=== PATIENT | female | born 1950 | race Caucasian/White ===

== ENCOUNTER 2018-08-15 17:00 | Emergency (ER) | payer MEDICARE, MEDICAID, SELFPAY ==
[2018-08-15 17:22] VITALS: BP 120/78; PULSE 90; RESP 13; TEMP 36.6; O2SAT 99
--- NOTE | 2018-08-15 19:34 | ED.SKABFB ---
HPI - Skin/Abscess/Foreign Bdy <GARFIELD Carson - Last Filed: 08/15/18 22:43> General Chief complaint: Skin/Abscess/Foreign Body Stated complaint: FEELS SICK, STATES LESSION UNDER TONGUE Time Seen by Provider: 08/15/18 19:09 Source: patient Mode of arrival: ambulatory Limitations: no limitations History of Present Illness HPI narrative: 67-year-old female with history of Mi an is a former smoker here for complaint of having sore throat and nasal congestion over the past couple of days. She also reports that she has a sore underneath her tongue. Positive p.o. intake. She is tolerating fluids well. No known fever. She denies any trauma to the area. She denies any contacts with similar symptoms. No other concerns or complaints at this timeframe. Related Data Home Medications Medication Instructions Recorded Confirmed [AMITR/BACL/SONDRA] #0 09/16/17 atorvastatin 40 mg PO DAILY 08/15/18 08/15/18 clopidogrel 75 mg PO DAILY 08/15/18 08/15/18 conjugated estrogens [Premarin] 1 applic VAGINAL DIRECTED 08/15/18 08/15/18 metoprolol succinate 25 mg PO DAILY 08/15/18 08/15/18 nitroglycerin 0.4 mg SUBLINGUAL PRN PRN 08/15/18 08/15/18 oxybutynin chloride 5 mg PO DAILY 08/15/18 08/15/18 pantoprazole 40 mg PO DAILY 08/15/18 08/15/18 Previous Rx's Medication Instructions Recorded lidocaine HCl 0 TOPICAL SEE INSTRUCTIONS #30 ml 07/01/17 benzonatate [Tessalon Perles] 100 mg PO TID #30 cap 08/27/17 benzonatate 200 mg PO Q8HP PRN #20 cap 08/30/17 lidocaine HCl [Lidocaine Viscous] 10 ml PO Q3HP PRN #120 ml 08/30/17 benzocaine 1 applictn MM TID PRN #9 gram 08/15/18 Allergies Allergy/AdvReac Type Severity Reaction Status Date / Time codeine [CODEINE] Allergy Intermediate Dizzy/nause Unverified 11/24/17 12:42 a Review of Systems <GARFIELD Carson - Last Filed: 08/15/18 22:43> Constitutional Denies chills, Denies fever(s), Denies lethargy and Denies weakness Eyes Denies change in vision, Denies eye discharge, Denies irritation and Denies loss of vision ENT Comments: Sore throat and oral lesion Cardiovascular Denies chest pain, Denies irregular heart rhythm, Denies lightheadedness, Denies palpitations, Denies dyspnea, Denies dyspnea on exertion and Denies orthopnea Respiratory Denies cough, Denies dyspnea, Denies dyspnea on exertion and Denies wheezing Gastrointestinal Gastrointestinal: Denies abdominal pain, Denies change in bowel habits, Denies diarrhea, Denies nausea and Denies vomiting Genitourinary Denies hematuria, Denies flank pain, Denies urinary incontinence and Denies urinary urgency Musculoskeletal Denies back pain, Denies muscle weakness, Denies numbness and Denies tingling Integumentary/Breasts Denies pruritus, Denies erythema, Denies rash and Denies wounds Neurologic Denies confusion, Denies loss of vision, Denies numbness, Denies tingling and Denies weakness Psychiatric Denies anxiety, Denies confusion, Denies depression, Denies homicidal ideation and Denies suicidal ideation Endocrine Denies palpitations Hematologic/Lymphatic Denies easy bruising Allergic/Immunologic Denies wheezing Exam <GARFIELD Carson - Last Filed: 08/15/18 22:43> Initial Vital Signs Initial Vital Signs: Vital Signs Temperature 97.8 F 08/15/18 17:22 Pulse Rate 90 08/15/18 17:22 Respiratory Rate 13 08/15/18 17:22 Blood Pressure 120/78 08/15/18 17:22 Pulse Oximetry 99 08/15/18 17:22 Const General: cooperative and well developed Nutritional Appearance: well nourished Orientation: alert, awake, oriented x3 and not confused [facility] Mouth: moist mucous membranes and other ( 0.5 cm whitish lesion to right sublingual area) Throat: posterior oropharynx abnormal (Mild erythema to oropharynx no exudate) erythema Eyes Conjunctivae: conjunctivae normal Sclera: sclerae normal Pupils: PERRL EOM: EOM intact bilaterally Resp Effort & Inspection: normal respiratory effort, able to speak in complete sentences, no respiratory distress and no use of accessory muscles Auscultation: clear to auscultation bilaterally, no rales, no rhonchi and no wheezes Cardio Rate: regular rate Rhythm: regular rhythm Heart Sounds: no click, no gallops, no murmurs and no rubs Pulses: normal peripheral pulses Neuro General: alert, oriented x3, gait normal and no focal motor deficits Speech: speech normal <Karey Connor MD - Last Filed: 08/16/18 02:50> Initial Vital Signs Initial Vital Signs: Vital Signs Temperature 97.8 F 08/15/18 17:22 Pulse Rate 90 08/15/18 17:22 Respiratory Rate 13 08/15/18 17:22 Blood Pressure 120/78 08/15/18 17:22 Pulse Oximetry 99 08/15/18 17:22 Course <GARFIELD Carson - Last Filed: 08/15/18 22:43> Vital Signs - 8 hr 08/15/18 19:47 Pulse Rate 83 Respiratory Rate 15 Blood Pressure [Left Arm] 137/77 Pulse Oximetry 99 <Karey Connor MD - Last Filed: 08/16/18 02:50> Vital Signs - 8 hr 08/15/18 19:47 Pulse Rate 83 Respiratory Rate 15 Blood Pressure [Left Arm] 137/77 Pulse Oximetry 99 MDM - Skin/Abscess/Foreign Bdy <GARFIELD Carson - Last Filed: 08/15/18 22:43> Lab Data Point of Care Testing Rapid Strep A Negative MDM Narrative Medical decision making narrative: Rapid strep test was obtained was negative for strep. Sinus symptoms presents as viral upper respiratory infection. Lesion to sublingual area. To be aphthous ulcer. [id number] Tylenol as needed for discomfort. Good hygiene. Follow up with primary care provider. For any worsening symptoms return to the emergency room. <Karey Connor MD - Last Filed: 08/16/18 02:50> Lab Data Point of Care Testing Rapid Strep A Negative Discharge Plan Departure Patient Disposition: Home Clinical Impression: Viral upper respiratory tract infection, Aphthous ulcer of mouth Discharge Date/Time: 08/15/18 21:41 Interventions: ED Discharge Assessment Last Done: 08/15/18 21:39 Instructions: DI for Aphthous Ulcers (Canker Sores) Activity Restrictions/Additional Instructions: Strep test was obtained was negative. Signs symptoms presents as a viral upper respiratory infection. Lesion to underneath the tongue appears to be a canker sore. Use [id number] Tylenol as needed for any discomfort. May use [id number] benzocaine aura prescribed benzocaine for discomfort to the canker sore. For any worsening symptoms return to the emergency room. Follow up with primary care provider. Prescriptions: New benzocaine 20 % gel 1 applictn MM TID PRN (Reason: mouth irritation) Qty: 9 RF: 0 No Action lidocaine HCl 30 ML jelly Topical SEE INSTRUCTIONS Qty: 30 RF: 4 benzonatate [Tessalon Perles] 100 MG capsule 100 mg PO TID Qty: 30 RF: 1 benzonatate 200 MG capsule 200 mg PO Q8HP PRNQty: 20 RF: 0 lidocaine HCl [Lidocaine Viscous] 100 ML solution 10 ml PO Q3HP PRNQty: 120 RF: 0 [AMITR/BACL/SONDRA] Qty: 0 RF: 0 atorvastatin 40 mg tablet 40 mg PO DAILY RF: 0 clopidogrel 75 mg tablet 75 mg PO DAILY RF: 0 pantoprazole 40 mg tablet,delayed release (DR/EC) 40 mg PO DAILY RF: 0 conjugated estrogens [Premarin] 0.625 mg/gram cream 1 applic Vaginal DIRECTED RF: 0 nitroglycerin 0.4 mg tablet, sublingual 0.4 mg Sublingual PRN PRN (Reason: Chest Pain) RF: 0 oxybutynin chloride 5 mg tablet extended release 24hr 5 mg PO DAILY RF: 0 metoprolol succinate 25 mg tablet extended release 24 hr 25 mg PO DAILY RF: 0 Referrals: Maya Matute DO [Primary Care Provider] -
[2018-08-15 19:47] VITALS: BP 137/77; PULSE 83; RESP 15; O2SAT 99
--- NOTE | 2018-08-15 20:06 | PC.NURSE ---
Pt reports noticed yesterday some discomfort in her L lateral side tongue. Today woke up with sig swelling and concerned. C/o Severe discomfort to eat/drink on affected site. Past smoker for 10 yrs.
--- NOTE | 2018-08-15 21:03 | PC.NURSE ---
entered room to obtain strep test. explained procedure to patient. Pt states she is upset about the wait and that she was told the doctor took a break. I informed her that the doctor did not take a break but I did and during that time another nurse was caring for her while I was gone. I informed her that we are a very packed department tonight and I apologized for the wait. I asked her if I could obtain the swab for the test. Pt agreed and strep swab was obtained.
--- NOTE | 2018-08-15 21:27 | PC.NURSE ---
Pt frequently opens door to room, and stands at doorway watching other people. Pt notified that she must wait in her room for patient privacy. Door remains open.
--- NOTE | 2018-08-15 21:36 | PC.NURSE ---
Patient at door way again. I listened to her complaints and informed her that her strep test was negative and apologized again for her wait. Provider came and discussed his findings with patient.
== END 2018-08-15 21:41 | disposition home or self-care (01) ==
PROVIDERS: Emergency Provider Nurse Practitioner Family; PCP Family Medicine
DX: J06.9 Acute upper respiratory infection, unspecified (principal); B97.89 Other viral agents as the cause of diseases classified elsewhere; K12.0 Recurrent oral aphthae
CPT/HCPCS: 87880; 99283

== ENCOUNTER 2020-03-03 16:40 | Emergency (ER) | payer MEDICARE, MEDICAID, SELFPAY ==
[2020-03-03 17:05] VITALS: BP 112/65; PULSE 87; RESP 16; TEMP 36.4; O2SAT 99; BMI 19.0
--- NOTE | 2020-03-03 17:07 | DI.RAD.S_ITS ---
PROCEDURE: XR FINGER LT MIN 2V INDICATIONS: jammed left thumb TECHNIQUE: AP hand, 2 views of the 1st finger(s) acquired. COMPARISON: None. FINDINGS: Bones: No fractures or dislocations. No suspicious bony lesions. Degenerative changes are seen throughout, which are most prominent involving the 1st carpometacarpal joint. Soft tissues: No suspicious soft tissue calcifications. IMPRESSION: No displaced fractures are seen on these plain films. If there is focal tenderness, or other clinical concern for a fracture not seen on these images in this patient with a given history of trauma, please consider a dedicated CT or a short-term followup plain film series (in 1-2 weeks) for further evaluation. Dictated by: Carlyle See M.D. on 03/03/2020 at 16:19 Approved by: Carlyle See M.D. on 03/03/2020 at 16:19
[2020-03-03] MEDS: IBUPROFEN 400 MG TABLET PO (19:08)
[2020-03-03] MEDS: ACETAMINOPHEN 325 MG TABLET 650 MG PO (19:08)
[2020-03-03 19:20] VITALS: BP 138/86; PULSE 88; RESP 16; O2SAT 99
--- NOTE | 2020-03-04 01:44 | ED.UPPEXIN ---
HPI - Extremity Injury (Upper) <Otto RoldanVIVAINP - Last Filed: 03/04/20 01:59> General Chief Complaint: Extremity Injury, Upper Stated Complaint: Fell off RV Yesterday, Hurt Left Thumb Time Seen by Provider: 03/03/20 17:47 Source: patient Mode of arrival: Ambulatory Limitations: no limitations History of Present Illness HPI narrative: This is a 69-year-old female, nonsmoker, who has history of hypertension and cardiac stent presents to ED with left dominant thumb injury that occurred yesterday. Patient reports she fell off RV 2 ft. above and landed and jammed on her left thumb vertically and fell on her left knee. There is no open skin from this injury. Patient iced affected thumb for last 2 days with improved swelling but concerned for for throbbing pain in her entire thumb. Patient reports pain increases with movement and intact sensation. Patient had not taking medications prior coming into ED. patient reports her primary care physician is at [facility]. Related Data Home Medications Medication Instructions Recorded Confirmed atorvastatin 40 mg PO DAILY 08/15/18 08/15/18 metoprolol succinate 25 mg PO DAILY 08/15/18 08/15/18 nitroglycerin 0.4 mg SUBLINGUAL PRN PRN 08/15/18 08/15/18 aspirin 03/04/20 Allergies Allergy/AdvReac Type Severity Reaction Status Date / Time codeine [CODEINE] Allergy Intermediate Dizzy/nause Verified 03/03/20 19:33 a Review of Systems <Otto RoldanVIVIANP - Last Filed: 03/04/20 01:59> Review of Systems Narrative: General: Denies fever, chills, fatigue, malaise, sweats. HEENT: Denies sinus pain, ear pain, sore throat, difficulty swallowing, dizziness. Respiratory: Denies dyspnea, cough, wheezing, hemoptysis, sputum. Cardiovascular: Denies chest pain, palpitations, orthopnea, edema. Gastrointestinal: Denies nausea, vomiting, abdominal pain, diarrhea, constipation, melena. : Denies dysuria, frequency, incontinence, hematuria, urinary retention. Musculoskeletal: See HPI Skin: Denies rash, skin lesions, or other. Neurologic: Denies weakness, headache, numbness, change in speech, confusion, seizures, incoordination. Psychiatric: No concerning psychosocial issues. 12-point review of systems is negative except for those stated above. Patient History <GARFIELD Victor - Last Filed: 03/04/20 01:59> Medical History (Updated 03/04/20 @ 01:47 by GARFIELD Victor) Hypertension (Acute) Surgical History (Updated 03/04/20 @ 01:47 by GARFIELD Victor) History of heart artery stent (Acute) Social History Smoking Status: Never smoker Smoking Status: Never smoker Substance Use Type: does not use Exam <GARFIELD Victor - Last Filed: 03/04/20 01:59> Narrative Exam Narrative: General appearance: well developed, well nourished, in no acute distress. Head: normocephalic, atraumatic, no scalp lesions, non-tender. ENT: Hearing grossly intact. Airway patent. Neck/Thyroid: neck supple, full range of motion, no visible masses or meningeal signs. No JVD, non-tender without lymphadenopathy. Skin: no suspicious rashes, lesions over visible areas. Warm and dry and appropriate color for ethnicity. Heart: no clubbing, no cyanosis, no edema. S1 and S2 normal. RRR w/o murmurs, clicks, or bruits. Lungs: Breathing even and unlabored. No stridor. No accessory muscles used. Able to speak in full sentences. Chest: normal shape and expansion. Abdomen: non-obese, non-distended. Neurologic: alert and oriented. Cognitive exam, CHIEF SCIENTIST and PNS grossly intact on informal exam. Psych: good eye contact, normal affect. Initial Vital Signs Initial Vital Signs: Vital Signs Temperature 97.6 F 03/03/20 17:05 Pulse Rate 87 03/03/20 17:05 Respiratory Rate 16 03/03/20 17:05 Blood Pressure 112/65 03/03/20 17:05 Pulse Oximetry 99 03/03/20 17:05 Extrem Left upper extremity: hand Details: abnormal to inspection, neuromotor exam abnormal Details: thumb IP flexion abnormal Details: limited by pain and thumb ADduction abnormal Details: limited by pain, neurosensory exam normal Details: radial nerve sensory function normal, tendon exam abnormal, tenderness, vascular exam Details: radial pulse present and normal capillary refill, abnormal ROM of finger Details: pain with active ROM and pain with passive ROM, warmth, swelling Location: of the thumb Location: involving the entire digit and other (erythema); no lacerations, no ecchymosis, no foreign bodies and no puncture wound <Reema Thomas MD - Last Filed: 03/04/20 02:57> Initial Vital Signs Initial Vital Signs: Vital Signs Temperature 97.6 F 03/03/20 17:05 Pulse Rate 87 03/03/20 17:05 Respiratory Rate 16 03/03/20 17:05 Blood Pressure 112/65 03/03/20 17:05 Pulse Oximetry 99 03/03/20 17:05 Procedures <GARFIELD Victor - Last Filed: 03/04/20 01:59> Orthopedic Splinting/Casting Injury #1: Side: left Upper Extremity Injury Location: hand Upper Extremity Immobilizer: thumb spica (prefabricated) Post splinting neuro exam: intact Post splinting vascular exam: intact Placed by: Nursing Scores <GARFIELD Victor - Last Filed: 03/04/20 01:59> GCS [place] coma scale eye opening: Spontaneous [place] coma scale verbal response: Orientated Handy coma scale motor response: Obey commands [place] coma scale total score: 15 Course <GARFIELD Victor - Last Filed: 03/04/20 01:59> Orders Ordered: Discontinued Medications Acetaminophen (Tylenol) 650 mg PO NOW ONE Stop: 03/03/20 18:32 Last Admin: 03/03/20 19:08 Dose: 650 mg Documented by: GURMEET Ibuprofen (Advil) 400 mg PO NOW ONE Stop: 03/03/20 18:32 Last Admin: 03/03/20 19:08 Dose: 400 mg Documented by: GURMEET Vital Signs Vital signs: Vital Signs - 8 hr 03/03/20 19:20 Pulse Rate 88 Respiratory Rate 16 Blood Pressure 138/86 Pulse Oximetry 99 <Reema Thomas MD - Last Filed: 03/04/20 02:57> Orders Ordered: Discontinued Medications Acetaminophen (Tylenol) 650 mg PO NOW ONE Stop: 03/03/20 18:32 Last Admin: 03/03/20 19:08 Dose: 650 mg Documented by: GURMEET Ibuprofen (Advil) 400 mg PO NOW ONE Stop: 03/03/20 18:32 Last Admin: 03/03/20 19:08 Dose: 400 mg Documented by: GURMEET Vital Signs Vital signs: Vital Signs - 8 hr 03/03/20 19:20 Pulse Rate 88 Respiratory Rate 16 Blood Pressure 138/86 Pulse Oximetry 99 MDM - Extremity Injury (Upper) <Otto GARFIELD Roldan - Last Filed: 03/04/20 01:59> Differential Diagnosis Differential diagnosis: Likely finger sprain and other (Fracture of finger/thumb) Medical Records Attestation: I reviewed the patient's medical records. Imaging Data XR-finger, LT: Radiologist's Impression: [address] [address] XRay Report Signed Patient: Tena Shelby LMR#: [id number] : 2Acct:[id number] Age/Sex: 69 / FDate of Service: 03/03/20 Loc: ED Accession Number: [id number] Procedure: XR finger LT min 2V Ordering Provider: Blue Kessler MD PROCEDURE: XR FINGER LT MIN 2V INDICATIONS: jammed left thumb TECHNIQUE: AP hand, 2 views of the 1st finger(s) acquired. COMPARISON: None. FINDINGS: Bones: No fractures or dislocations. No suspicious bony lesions. Degenerative changes are seen throughout, which are most prominent involving the 1st carpometacarpal joint. Soft tissues: No suspicious soft tissue calcifications. IMPRESSION: No displaced fractures are seen on these plain films. If there is focal tenderness, or other clinical concern for a fracture not seen on these images in this patient with a given history of trauma, please consider a dedicated CT or a short-term followup plain film series (in 1-2 weeks) for further evaluation. Dictated by: Carlyle See M.D. on 03/03/2020 at 16:19 Approved by: Carlyle See M.D. on 03/03/2020 at 16:19 [facility] Narrative Medical decision making narrative: This is a 69-year-old female who injured her left thumb of dominant hand by landing vertically in jammed affected finger when she fell down 2 ft down RV. X-ray test does not show acute findings such as fractures or dislocation. Distal pulse sensation is intact. Patient has limited active and passive range of motion due to pain. Affected hand has placed on prefabricated thumb spica splint and patient was medicated with Tylenol and Motrin in ED for pain management. Advised RICE therapy and to follow-up with her primary care physician next week for recheck. If pain is not improving as expected and patient develops weakness on affected finger and to follow-up with [facility] orthopedist. Patient verbalized understanding and in agreement with treatment plan. Discharge Plan Departure Patient Disposition: Home Clinical Impression: Contusion of left thumb Qualifiers: Encounter type: initial encounter Damage to nail status: without damage Qualified Code(s): S60.012A - Contusion of left thumb without damage to nail, initial encounter Discharge Date/Time: 03/03/20 19:36 Instructions: DI for Contusion Activity Restrictions/Additional Instructions: You have been diagnosed with [left thumb contusion. X-ray test does not show acute findings such as fractures or dislocation. Please use splint that has been provided to you immobilization and to help with pain.]. What to do: *Take your medications as directed. Please take [id number] Tylenol 650-1000 mg up to 3 to 4 times a day as needed for pain. You can use ibuprofen/Motrin 400 mg up to 3 times a day as needed for pain and inflammation. Please take it with food to decrease GI irritation. You can use pack for another daily to help with swelling and inflammation. Elevate your hand as much as possible if you have swelling. *Follow up with your primary care provider in 2-3 days, call for an appointment. Let them know you were seen in the ED and that we asked you to be seen in follow up. You may require further imaging test if your symptoms not improved next 10 days to 2 weeks. As needed, please follow-up with [facility] orthopedist. *Return to ED if you have any new, worsening, or concerning symptoms, such as [chest pain, breathing difficulty, unable to tolerate fluids, worsening pain, weakness/numbness/tingling on affected finger or any acute concerns]. Prescriptions: No Action aspirin 81 mg Tablet,Chewable RF: 0 atorvastatin 40 mg tablet 40 mg PO DAILY RF: 0 nitroglycerin 0.4 mg tablet, sublingual 0.4 mg Sublingual PRN PRN (Reason: Chest Pain) RF: 0 metoprolol succinate 25 mg tablet extended release 24 hr 25 mg PO DAILY RF: 0 Referrals: [facility] [Provider Group] <Reema Thomas MD - Last Filed: 03/04/20 02:57> Cosign ED Attending Cosignature Attestation: I was immediately available in the department for consultation throughout this patient's visit. I agree with documentation as above. Reema Thomas MD
== END 2020-03-03 19:36 | disposition home or self-care (01) ==
PROVIDERS: Emergency Provider Nurse Practitioner Family; PCP Family Medicine
DX: S60.012A Contusion of left thumb without damage to nail, initial encounter (principal); W23.0XXA Caught, crushed, jammed, or pinched between moving objects, initial encounter; I10 Essential (primary) hypertension
CPT/HCPCS: 29280; 73140; 99283

== ENCOUNTER 2021-03-22 16:24 | Emergency (ER) | payer MEDICARE, MEDICAID, SELFPAY ==
[2021-03-22 16:36] VITALS: BP 151/72; PULSE 89; RESP 16; TEMP 36.7; O2SAT 95; BMI 19.8
--- NOTE | 2021-03-22 16:39 | DI.RAD.S_ITS ---
PROCEDURE: XR FOOT RT MIN 3V INDICATIONS: dropped shovel on R foot TECHNIQUE: 3 views of the foot were acquired. COMPARISON: [facility], CR, FOOT COMP MIN 3VW (RT), 03/19/2014, 15:29. [facility], CR, XR FOOT 3VW RT, 02/24/2017, 16:13. FINDINGS: Bones: No definite, displaced fractures are seen. Moderate to prominent hallux valgus deformity is seen, with associated focal degenerative change of the 1st metatarsophalangeal joint. Milder degenerative changes are seen elsewhere. Toe alignment abnormalities are seen. Plantar and Achilles calcaneal spurs are seen. An apparent bone island can be seen involving the proximal aspect of the 1st metatarsal. Soft tissues: No tibiotalar joint effusion. Achilles tendon appears normal. IMPRESSION: No definite, displaced fractures are detected. If there is point tenderness (or other clinical suspicion for a fracture not seen on these images) then a dedicated CT could be considered for further evaluation, if clinically appropriate. Moderate to prominent hallux valgus deformity, with associated degenerative changes. Dictated by: Carlyle See M.D. on 03/22/2021 at 15:59 Approved by: Carlyle See M.D. on 03/22/2021 at 16:01
--- NOTE | 2021-03-22 17:22 | ED_ITS ---
HPI - Extremity Injury (Lower) General Chief Complaint: Extremity Injury, Lower Stated Complaint: Messed Up Rt Foot, Hammer Toe,Swelling Time Seen by Provider: 03/22/21 16:44 History of Present Illness HPI Narrative: 70-year-old female nonsmoker with history of hypertension, hyperlipidemia, cardiac disease presents with a chief complaint of an accidental injury to the 2nd toe on her right foot. She states that she was caring a heavy object and dropped it on her toe and now has pain and swelling that has not improved. The injury was a few days ago and she still has swelling on her 2nd toe, which is a hammertoe,. She has no systemic findings such as fever chills nor nausea or vomiting. She has increased pain with ambulation and improvement with rest. She has a hard time squeezing her foot in to her shoe. Related Data Home Medications Medication Instructions Recorded Confirmed atorvastatin 40 mg tablet 40 mg PO DAILY 08/15/18 08/15/18 metoprolol succinate 25 mg 25 mg PO DAILY 08/15/18 08/15/18 tablet,extended release 24 hr nitroglycerin 0.4 mg sublingual 0.4 mg SUBLINGUAL PRN PRN 08/15/18 08/15/18 tablet aspirin 81 mg chewable tablet 03/04/20 Previous Rx's Medication Instructions Recorded cephalexin 500 mg capsule 500 mg PO Q6H 7 Days #28 cap 03/22/21 Allergies Allergy/AdvReac Type Severity Reaction Status Date / Time codeine [CODEINE] Allergy Intermediate Dizzy/nause Verified 03/03/20 19:33 a Review of Systems Review of Systems Narrative: GENERAL: Denies chills, fatigue, malaise, fever, sweats. HEENT: Denies sinus pain, ear pain, sore throat, difficulty swallowing, dizziness. RESPIRATORY: Denies dyspnea, cough, wheezing, hemoptysis, sputum. CARDIOVASCULAR: Denies chest pain, palpitations, orthopnea, edema, GASTROINTESTINAL: Denies nausea, vomiting, abdominal pain, diarrhea, constipation, melena. : Denies dysuria, frequency, incontinence, hematuria, urinary retention. MUSCULOSKELETAL: See HPI SKIN: See HPI NEUROLOGIC: Denies weakness, headache, numbness, change in speech, confusion, seizures, incoordination. PSYCHIATRIC: No concerning psychosocial issues. 12 point review of systems is negative except for those stated above Patient History Medical History Hypertension Surgical History History of heart artery stent Social History Smoking Status: Never smoker Smoking Status: Never smoker Substance Use Type: does not use Exam Narrative Exam Narrative: GEN: AOx3 and in mild distress EYES: Pupils are equal, round, and reactive to light and accommodation. Extraoccular muscles are intact bilaterally. There is no subconjunctival hemorrhage or exudate. CHEST: Lungs are clear to auscultation bilaterally and free of wheezes, rales, or rhonchi. Heart rate is regular rhythm, there are no murmurs, clicks, rubs, or gallops. There is no chest wall tenderness. ABD: Abdomen is soft and nontender. There is no guarding or rebound. Bowel sounds are normal in all 4 quadrants. There is no mass or organomegaly. EXT: Right 2nd toe (hammertoe) with mild swelling overlying the D IP with a healing superficial abrasion and minimal erythema. There is no lymphangitis. This is closed, isolated and neurovascularly intact SKIN: Warm, pink, and dry. No erythema or rash Initial Vital Signs Initial Vital Signs: Vital Signs Temperature 98.1 F 03/22/21 16:36 Pulse Rate 89 03/22/21 16:36 Respiratory Rate 16 03/22/21 16:36 Blood Pressure 151/72 H 03/22/21 16:36 Pulse Oximetry 95 03/22/21 16:36 Procedures Orthopedic Splinting/Casting Injury #1: Side: right Lower Extremity Injury Location: foot Lower Extremity Immobilizer: post-op shoe Post splinting neuro exam: intact Post splinting vascular exam: intact Placed by: Nursing Course Orders Ordered: Discontinued Medications Hydrocodone Bitart/Acetaminophen (Hydrocodone/Acet 5/325 Prepack) 1 bottle MISC SEEINSTR ONE Stop: 03/22/21 17:38 Last Admin: 03/22/21 17:45 Dose: 1 bottle Documented by: NERY Cefazolin Sodium (Cephalexin 250 Mg Prepack) 1 bottle MISC SEEINSTR ONE Stop: 03/22/21 17:38 Last Admin: 03/22/21 17:45 Dose: 1 1000units Documented by: NERY Vital Signs Vital signs: Vital Signs - 8 hr 03/22/21 16:36 Temperature 98.1 F Pulse Rate 89 Respiratory Rate 16 Blood Pressure 151/72 H Pulse Oximetry 95 MDM - Extremity Injury (Lower) Imaging Data Extremity x-ray #1: Radiologist's Impression: Tena Shelby 70 F [address] [id number] ReportSigned Patient: Tena Shelby LMR#: [id number]: 1950cct:[id number]/Sex: 70 / FDate of Service: 03/22/21Loc: EDAccession Number: [id number] Procedure: XR foot RT min 3V Ordering Provider: Greg Redd D.O. PROCEDURE: XR FOOT RT MIN 3V INDICATIONS: dropped shovel on R foot TECHNIQUE: 3 views of the foot were acquired. COMPARISON: [facility], CR, FOOT COMP MIN 3VW (RT), 03/19/2014, 15:29. [facility], CR, XR FOOT 3VW RT, 02/24/2017, 16:13. FINDINGS: Bones: No definite, displaced fractures are seen. Moderate to prominent hallux valgus deformity is seen, with associated focal degenerative change of the 1st metatarsophalangeal joint. Milder degenerative changes are seen elsewhere. Toe alignment abnormalities are seen. Plantar and Achilles calcaneal spurs are seen. An apparent bone island can be seen involving the proximal aspect of the 1st metatarsal. Soft tissues: No tibiotalar joint effusion. Achilles tendon appears normal. IMPRESSION: No definite, displaced fractures are detected. If there is point tenderness (or other clinical suspicion for a fracture not seen on these images) then a dedicated CT could be considered for further evaluation, if clinically appropriate. Moderate to prominent hallux valgus deformity, with associated degenerative changes. Dictated by: Carlyle See M.D. on 03/22/2021 at 15:59 Approved by: Carlyle See M.D. on 03/22/2021 at 16:01 [facility] Narrative Medical decision making narrative: Patient with isolated injury and ongoing pain and swelling has no evidence of fracture on exam or imaging. There is a sup erficial abrasion and some ongoing swelling hence my decision to treat for possible infection. She is given return precautions and is had questions answered to her apparent satisfaction Discharge Plan Departure Patient Disposition: Home Clinical Impression: Crushing injury of second toe Instructions: DI for Cellulitis -- Adult Activity Restrictions/Additional Instructions: *You have been diagnosed with [injury to 2nd toe on right foot consistent with early cellulitis] *What to do: *Please continue to take your regular medications as directed. [ x] New medication prescriptions sent to your pharmacy: [[facility] ] [ ] New medication written as a paper prescription [ ] No new medications given *Please follow up with your primary care provider in 2-3 days, call for an appointment. Let them know you were seen in the Emergency Department and that we ask that you be seen in follow up. We will electronically transmit a record of today's note if your PCP is in our system *If you do not have a primary care provider please contact the [facility] Resource line at [phone]. They will ask some questions about your medical history and help get you set up with a doctor in the community. *Return to Emergency Department if you should have any new, worsening or concerning symptoms, such as [fever greater than 101 F, shaking chills, worsening pain, persistent vomiting or other bothersome symptoms] Prescriptions: New cephalexin 500 mg capsule 500 mg PO Q6H 7 Days Qty: 28 RF: 0 No Action aspirin 81 mg Tablet,Chewable RF: 0 atorvastatin 40 mg tablet 40 mg PO DAILY RF: 0 nitroglycerin 0.4 mg tablet, sublingual 0.4 mg Sublingual PRN PRN (Reason: Chest Pain) RF: 0 metoprolol succinate 25 mg tablet extended release 24 hr 25 mg PO DAILY RF: 0 Referrals: Maya Matute DO [Primary Care Provider] -
[2021-03-22] MEDS: cephALEXin 250 MG PREPACK 1 BOTTLE MISC (17:45)
[2021-03-22] MEDS: HYDROCODONE/ACET 5/325 PREPACK 1 BOTTLE MISC (17:45)
== END 2021-03-22 17:57 | disposition home or self-care (01) ==
PROVIDERS: Emergency Provider Emergency Medicine; PCP Family Medicine
DX: S97.121A Crushing injury of right lesser toe(s), initial encounter (principal); W22.8XXA Striking against or struck by other objects, initial encounter
CPT/HCPCS: 73630; 99281; 99283

== ENCOUNTER 2022-08-21 14:08 | Emergency (ER) | payer MEDICARE, MEDICAID, SELFPAY ==
[2022-08-21 14:39] VITALS: BP 146/67; PULSE 81; RESP 18; TEMP 36.7; O2SAT 98; BMI 18.2
--- NOTE | 2022-08-21 15:32 | ED_ITS ---
HPI - Back Pain/Injury <Sharon Uribe PA-C - Last Filed: 08/21/22 21:06> General Chief Complaint: Back Pain/Injury Stated Complaint: back pain for several days Time Seen by Provider: 08/21/22 14:17 Source: patient History of Present Illness HPI Narrative: Patient is 71 years old female, with history compression fracture, who apparently was seen in walk-in clinic in when the CT scan was done o 3 days ago . We received esults of the study which showed no acute findings except for extensive DDD , at that time patient was placed on [place]. Despite on medication her pain continues. She states she has been quite uncomfortable, pain worse with ambulating sitting down No tingling or numbness in LE no bowel or urine ncontinence She gave a detailed history of her long standing problems with back pain, admits has osteoporosis and is on fosamax but not on ca and vit D She has had vertebroplasty some time ago due to compression fractures, however the pain she is experiencng now is similar to that pain she had when hshe sustai dejah compression frectures patient was seen in [place] [facility] and states has had some intra articular injections n the past which was a great help Patient is under impression she may need MRI to fix her problem as compression fractures could be missed with other tests. Related Data Home Medications Medication Instructions Recorded Confirmed atorvastatin 40 mg tablet 40 mg PO DAILY 08/15/18 08/15/18 metoprolol succinate 25 mg 25 mg PO DAILY 08/15/18 08/15/18 tablet,extended release 24 hr nitroglycerin 0.4 mg sublingual 0.4 mg sublingual PRN PRN Chest 08/15/18 08/15/18 tablet Pain aspirin 81 mg chewable tablet 03/04/20 Previous Rx's Medication Instructions Recorded hydrocodone 5 mg-acetaminophen 325 1 tab PO Q4-6H PRN pain #30 tabs 08/21/22 mg tablet methocarbamol 500 mg tablet 500 mg PO BEDTIME #10 tabs 08/21/22 Allergies Allergy/AdvReac Type Severity Reaction Status Date / Time codeine [CODEINE] Allergy Intermediate Dizzy/nause Verified 08/21/22 14:45 a oxycodone Allergy Unknown Verified 08/21/22 14:45 Review of Systems <Sharon Uribe PA-C - Last Filed: 08/21/22 21:06> Review of Systems Narrative: GENERAL: Denies chills admits to, fatigue, malaise, fever, sweats. HEENT: Denies sinus pain, ear pain, sore throat, difficulty swallowing, dizziness. RESPIRATORY: Denies dyspnea, cough, wheezing, hemoptysis, sputum. CARDIOVASCULAR: Denies chest pain, palpitations, orthopnea, edema, GASTROINTESTINAL: Denies nausea, vomiting, abdominal pain, diarrhea, constipation, melena. : Denies dysuria, frequency, incontinence, hematuria, urinary retention. MUSCULOSKELETAL: Ongoing mid and lower back pain, however worse since beginning of August difficulty ambulating and transferring SKIN: Denies rash, skin lesions, or other NEUROLOGIC: Denies focal weakness, headache, numbness, loss of bladder bowel control, no change in speech, confusion, seizures, incoordination. PSYCHIATRIC: No concerning psychosocial issues. 12 point review of systems is negative except for those stated above Patient History <BIPIN Cool Last Filed: 08/21/22 21:06> Medical History Hypertension Surgical History History of heart artery stent Social History Smoking Status: Current some day smoker Smoking Status: Current some day smoker alcohol intake frequency: 0-2 drinks per day Substance Use Type: does not use Exam <BIPIN Cool Last Filed: 08/21/22 21:06> Narrative Exam Narrative: GENERAL: 71 year old patient appears stated age. Thin frail female, in mild distress due to back pain. HEAD: Atraumatic. Normocephalic. EYES: Pupils equal round and reactive. Extraocular motions intact. No scleral icterus. No injection or drainage. ENT: Nose without bleeding, purulent drainage. Throat without erythema, tonsillar hypertrophy or exudate. Airway patent. NECK: Trachea midline. Non tender CARDIOVASCULAR: Regular rate and rhythm without murmurs, gallops, or rubs. RESPIRATORY: Clear to auscultation. Breath sounds equal bilaterally. No wheezes, rales, or rhonchi. GASTROINTESTINAL: Abdomen soft, non-tender, nondistended. EXTREMITIES: No edema or joint tenderness. BACK: Left-sided tenderness and spasm, without deformity or crepitance. No flank tenderness. NEURO: AOx3. No focal deficits lower extremity reflexes hypoactive SKIN: No rash or erythema of visible areas Initial Vital Signs Initial Vital Signs: Vital Signs Temperature 98.1 F 08/21/22 14:39 Pulse Rate 81 08/21/22 14:39 Respiratory Rate 18 08/21/22 14:39 Blood Pressure 146/67 H 08/21/22 14:39 Pulse Oximetry 98 08/21/22 14:39 Oxygen Delivery Method 08/21/22 14:39 <Sophia Palomo DO - Last Filed: 08/22/22 18:13> Initial Vital Signs Initial Vital Signs: Vital Signs Temperature 98.1 F 08/21/22 14:39 Pulse Rate 81 08/21/22 14:39 Respiratory Rate 18 08/21/22 14:39 Blood Pressure 146/67 H 08/21/22 14:39 Pulse Oximetry 98 08/21/22 14:39 Oxygen Delivery Method 08/21/22 14:39 Course <Sharon Uribe PA-C - Last Filed: 08/21/22 21:06> Course Course Narrative: Patient was observed in emergency department, she was able to ambulate on her own, and transfer without assistance. Orders Ordered: Discontinued Medications Hydrocodone Bitart/Acetaminophen (Hydrocodone/Acet 5/325 Prepack) 1 bottle MISC SEEINSTR ONE Stop: 08/21/22 19:53 Last Admin: 08/21/22 20:16 Dose: 1 bottle Documented By: TREY Vital Signs Vital signs: Vital Signs - 8 hr 08/21/22 14:39 08/21/22 20:33 Temperature 98.1 F Pulse Rate 81 77 Respiratory Rate 18 Blood Pressure 146/67 H 140/72 Pulse Oximetry 98 96 Oxygen Delivery Method Room Air Room Air <Sophia Palomo DO - Last Filed: 08/22/22 18:13> Orders Ordered: Discontinued Medications Hydrocodone Bitart/Acetaminophen (Hydrocodone/Acet 5/325 Prepack) 1 bottle MISC SEEINSTR ONE Stop: 08/21/22 19:53 Last Admin: 08/21/22 20:16 Dose: 1 bottle Documented By: TREY Vital Signs Vital signs: Vital Signs - 8 hr 08/21/22 14:39 08/21/22 20:33 Temperature 98.1 F Pulse Rate 81 77 Respiratory Rate 18 Blood Pressure 146/67 H 140/72 Pulse Oximetry 98 96 Oxygen Delivery Method Room Air Room Air MDM - Back Pain/Injury <Sharon Uribe PA-C - Last Filed: 08/21/22 21:06> Medical Records Medical records narrative: Medical records reviewed from [facility] scan see scanned record from August 18, demonstrated no acute findings, no compression fracture, mild compression deformity L2 through L4 which appear similar to prior history, bone cement redemonstration in L2-L4 vertebral bodies. Multilevel degenerative changes throughout the lumbar spine without high-grade spinal canal or neural foraminal narrowing. MDM Narrative Medical decision making narrative: Discussed with patient diagnosis and treatment. Obviously patient has osteoporosis and should continue monitor bone density with her PCP, continue with Fosamax, however she may add calcium and vitamin-D supplementation. Multiple etiologies for patient's symptoms considered including: Diskitis, muscle spasm, sciatica. Concerning the need for MRI, and long-term management of her back pain advised to follow with her PCP. Patient's symptoms were stable during her emergency room stay Findings and discharge diagnosis discussed with patientfollowed by verbalization of understanding Return precautions discussed with patient whom verbalize understanding. Discharge Plan Departure Patient Disposition: Home Clinical Impression: Low back pain at multiple sites, Lumbar back pain Instructions: DI for Low Back Pain Activity Restrictions/Additional Instructions: *You have been diagnosed with acute back pain stemming from degenerative disc disease *What to do: *Please continue to take your regular medications as directed. New medication prescriptions sent to your pharmacy: narco and methocarbamol at bed time *Please follow up with your primary care provider in 2-3 days, call for an appointment. Let them know you were seen in the Emergency Department and that we ask that you be seen in follow up. We will electronically transmit a record of today's note if your PCP is in our system *If you do not have a primary care provider please contact the [facility] Resource line at [phone]. They will ask some questions about your medical history and help get you set up with a doctor in the community. *Return to Emergency Department if you should have any new, worsening or concerning symptoms, such as [fever greater than 101 F, shaking chills, worsening pain, persistent vomiting or other bothersome symptoms] Prescriptions: New hydrocodone-acetaminophen 5-325 mg tablet 1 tab PO Q4-6H PRN (Reason: pain) Qty: 30 0RF methocarbamol 500 mg tablet 500 mg PO BEDTIME Qty: 10 0RF No Action aspirin 81 mg Tablet,Chewable atorvastatin 40 mg tablet 40 mg PO DAILY nitroglycerin 0.4 mg tablet, sublingual 0.4 mg Sublingual PRN PRN (Reason: Chest Pain) metoprolol succinate 25 mg tablet extended release 24 hr 25 mg PO DAILY Referrals: Nelia Johnson DO [Primary Care Provider] - Stand Alone Forms: Patient Portal/API <Sophia Palomo DO - Last Filed: 08/22/22 18:13> Cosign ED Attending Cosnatiature Attestation: I was immediately available in the department for consultation. Documentation has been reviewed. I agree with assessment and plan.
[2022-08-21] MEDS: HYDROCODONE/ACET 5/325 PREPACK 1 BOTTLE MISC (20:16)
[2022-08-21 20:33] VITALS: BP 140/72; PULSE 77; O2SAT 96
== END 2022-08-21 20:32 | disposition home or self-care (01) ==
PROVIDERS: Emergency Provider Physician Assistant Medical; PCP Family Medicine
DX: M51.36 Other intervertebral disc degeneration, lumbar region (principal)
CPT/HCPCS: 99281; 99282